=== PATIENT | female | born 1970 | race Asian ===

== ENCOUNTER 2021-05-12 15:10 | Outpatient (CLI) | payer OTHER | END 2021-05-12 15:11 | disposition home or self-care (01) | LOC: CSHMAMMO 15:10 | PROVIDERS: ATTEND Internal Medicine | DX: Z12.31 Encounter for screening mammogram for malignant neoplasm of breast (principal) | CPT/HCPCS: 77063; 77067 ==

== ENCOUNTER 2022-06-07 08:01 | Outpatient (CLI) | payer BC | END 2022-06-07 08:02 | disposition home or self-care (01) | LOC: CSHMAMMO 08:01 | PROVIDERS: ATTEND Internal Medicine | DX: Z12.31 Encounter for screening mammogram for malignant neoplasm of breast (principal) | CPT/HCPCS: 77063; 77067 ==

== ENCOUNTER 2022-08-16 16:25 | Outpatient (CLI) | payer BC | END 2022-08-16 16:26 | disposition home or self-care (01) | LOC: CSHRAD 16:25 | PROVIDERS: ATTEND Nurse Practitioner Family | DX: J98.01 Acute bronchospasm (principal) | CPT/HCPCS: 71046 ==

== ENCOUNTER 2023-08-18 15:06 | Outpatient (CLI) | payer BC | END 2023-08-18 15:07 | disposition home or self-care (01) | LOC: CSHMAMMO 15:06 | PROVIDERS: ATTEND Internal Medicine | DX: Z12.31 Encounter for screening mammogram for malignant neoplasm of breast (principal) | CPT/HCPCS: 77063; 77067 ==

== ENCOUNTER 2025-03-17 17:31 | Emergency (ER) | payer BC ==
[~2025-03-17 17:31] MED LIST: Iopamidol 300 61% 100 ML VIAL FS ONE
[2025-03-17] MEDS ORDERED: Acetaminophen 500 MG TAB ONE (17:58)
[2025-03-17 18:44] LABS: #Basophils Less than 0.03 10x3/uL (0.0-0.2); #Eosinophils 0.23 10x3/uL (0.0-0.5); #Monocytes 0.58 10x3/uL (0.0-1.1); #Neutrophils 4.74 10x3/uL (1.5-8.4); %Basophils 0.2 % (0.0-2.0); %Eosinophils 2.8 % (0.0-6.0); %Lymphocytes 33.1 % (18.0-47.0); %Monocytes 6.9 % (0.0-10.0); %Neutrophils 56.8 % (40.0-75.0); Hematocrit 41.2 % (34.9-44.5); Hemoglobin 14.0 g/dL (12.0-15.5); Mean Corpuscular Hemoglobin 30.7 pg (27.0-33.0); Mean Corpuscular Volume 90.4 fL (81.6-98.3); Platelet Count 287 10x3/uL (150-450); Red Blood Cell (RBC) Count 4.56 10x6/uL (3.90-5.03); White Blood Cell (WBC) Count 8.36 10x3/uL (3.5-10.5)
[2025-03-17 18:58] LABS: INR-International Normal Ratio 1.0; PTT 27.4 sec (22.0-33.0); Prothrombin Time 10.5 sec (9.5-12.1)
[2025-03-17 19:14] LABS: ALT (SGPT) 60 U/L (Less than 34); AST (SGOT) 47 U/L (11-34); Albumin 4.1 g/dL (3.1-4.5); Alkaline Phosphatase 103 U/L (40-110); Anion Gap 13 mmol/L (10-20); BUN (Urea Nitrogen) 16 mg/dL (9.8-20.1); Bilirubin, Total 0.7 mg/dL (0.3-1.2); Calc. Creatinine Clearance 0 mL/min (70-130); Calcium 9.5 mg/dL (7.8-10.44); Carbon Dioxide 27 mmol/L (22-29); Chloride 102 mmol/L (98-107); Globulin 3.6 g/dL (2.4-3.5); Glucose 106 mg/dL (70-105); Lipase 24 U/L (8-78); Potassium 3.5 mmol/L (3.5-5.1); Sodium 138 mmol/L (136-145)
[2025-03-17 19:20] LABS: Troponin I Less than 0.010 ng/mL (< 0.028)
[2025-03-17 19:49] LABS: Glucose, Urine (Dipstick) Normal (Negative); Leukocyte 25 (Negative); Protein, Urine (Dipstick) 30 mg/dl (Neg-Trace); Specific Gravity, Urine 1.015 (1.005-1.030)
[2025-03-17 20:05] LABS: RBC/HPF 0-3 HPF (0-3); WBC/HPF 0-3 HPF (0-3)
[2025-03-17 20:06] LABS: Bacteria/HPF 1+ HPF (None Seen)
== END 2025-03-17 20:28 ==
LOC: CSHERS 17:31
DX: S20.319A Abrasion of unspecified front wall of thorax, initial encounter (principal); I10 Essential (primary) hypertension; E03.9 Hypothyroidism, unspecified; E78.5 Hyperlipidemia, unspecified; Z55.6 Problems related to health literacy; V49.40XA Driver injured in collision with unspecified motor vehicles in traffic accident, initial encounter
CPT/HCPCS: 71260; 74177; 80053; 81001; 83605; 83690; 84484; 85025; 85610; 85730; 93005

== ENCOUNTER 2025-03-22 20:09 | Emergency (ER) | payer BC ==
[2025-03-22] MEDS ORDERED: HYDROcodone/Acetaminophen 5/325 mg Tablet ONE (21:01)
== END 2025-03-22 21:21 | disposition home or self-care (01) ==
LOC: CSHERS 20:09
DX: S89.91XA Unspecified injury of right lower leg, initial encounter (principal); I10 Essential (primary) hypertension; E03.9 Hypothyroidism, unspecified; X50.1XXA Overexertion from prolonged static or awkward postures, initial encounter
CPT/HCPCS: 76882; 99283

== ENCOUNTER 2025-03-24 12:05 | Outpatient (CLI) | payer BC | END 2025-03-24 12:06 | disposition home or self-care (01) | LOC: CSHULT 12:05 | PROVIDERS: ATTEND Internal Medicine | DX: M25.561 Pain in right knee (principal); Z53.9 Procedure and treatment not carried out, unspecified reason | CPT/HCPCS: 76882 ==

== ENCOUNTER 2025-04-02 09:58 | Outpatient (CLI) | payer BC | END 2025-04-02 09:59 | disposition home or self-care (01) | LOC: CSHMRI 09:58 | PROVIDERS: ATTEND Orthopaedic Surgery | DX: S83.231A Complex tear of medial meniscus, current injury, right knee, initial encounter (principal); M94.8X6 Other specified disorders of cartilage, lower leg; M25.461 Effusion, right knee; M23.41 Loose body in knee, right knee ==

== ENCOUNTER 2025-04-17 12:36 | Emergency (ER) | payer BC ==
[2025-04-17] MEDS ORDERED: Ondansetron PF 4 MG/2 ML Vial ONE (13:47)
== END 2025-04-17 15:29 | disposition home or self-care (01) ==
LOC: CSHERS 12:36
DX: K43.6 Other and unspecified ventral hernia with obstruction, without gangrene (principal); I10 Essential (primary) hypertension
CPT/HCPCS: 96374; 96375; J2270; J2405